=== PATIENT | female | born 1985 ===

== ENCOUNTER 2024-12-05 06:37 | Day surgery (SDC) | payer OTHER, SELFPAY ==
--- NOTE | 2024-12-04 15:01 | SUR.OPER ---
Patient stated she took Wegovy on Sunday the , surgery is the , Dr. Bethea made aware, no further interventions required.
[2024-12-05] VITALS (7 sets, daily range): BP systolic 94–107; BP diastolic 66–83; BMI 31.9
[2024-12-05] MEDS: DILAUDID 0.5 MG IV (10:58)
== END 2024-12-05 12:50 | disposition home or self-care (01) ==
LOC: SDS 06:37
PROVIDERS: ATTENDING PHYSICIAN Otolaryngology Facial Plastic Surgery; FAMILY PHYSICIAN Internal Medicine
DX: J34.3 Hypertrophy of nasal turbinates (principal); J34.89 Other specified disorders of nose and nasal sinuses
CPT/HCPCS: 30140

== ENCOUNTER → 2025-02-20 09:34 | Outpatient (REF) | payer OTHER, SELFPAY | LOC: RCS 09:34 | PROVIDERS: ATTENDING PHYSICIAN Student in an Organized Health Care Education/Training Program | DX: R00.2 Palpitations (principal) | CPT/HCPCS: 93017 ==

== ENCOUNTER → 2025-09-09 10:47 | Outpatient (REF) | payer OTHER, SELFPAY | LOC: RCS 10:47 | PROVIDERS: ATTENDING PHYSICIAN Student in an Organized Health Care Education/Training Program; FAMILY PHYSICIAN Internal Medicine | DX: R42 Dizziness and giddiness (principal) | CPT/HCPCS: 93306 ==